=== PATIENT | male | born 1990 | race Caucasian/White ===

== ENCOUNTER 2021-10-01 03:03 | Emergency (ER) | payer OTHER ==
[~2021-10-01] VITALS: Ht 182.9 cm; Wt 125.0 kg
[2021-10-01] MEDS ORDERED: LIDOCAINE HCL 2% TOP JELLY 5ML TOP ONE (10:15)
[2021-10-01] MEDS ORDERED: LIDOCAINE HCL 5 % TOP OINT 35 GM TOP ONE (11:00)
[2021-10-01 12:00] VITALS: BP 126/84
[2021-10-01] MEDS ORDERED: NEOMYCIN-BACITRACIN-POLYM UNITDOSE PKG TOP OINT TOP ONE (12:16)
[2021-10-01] MEDS ORDERED: HYDR-4902 PO (12:31)
[2021-10-01] MEDS ORDERED: CEFD300C2 PO (12:31)
[2021-10-01] MEDS ORDERED: NAPR500T31 PO (12:31)
== END 2021-10-01 13:16 | disposition home or self-care (01) ==
LOC: ER 03:03
DX: S82.301A Unspecified fracture of lower end of right tibia, initial encounter for closed fracture (principal); S01.312A Laceration without foreign body of left ear, initial encounter; S50.01XA Contusion of right elbow, initial encounter; S20.212A Contusion of left front wall of thorax, initial encounter; S80.01XA Contusion of right knee, initial encounter; E11.9 Type 2 diabetes mellitus without complications; V43.52XA Car driver injured in collision with other type car in traffic accident, initial encounter; Y93.89 Activity, other specified; Y92.410 Unspecified street and highway as the place of occurrence of the external cause; Y99.8 Other external cause status
CPT/HCPCS: 12013; 29515; 70450; 71045; 71250; 72125; 72131; 73562; 73610